=== PATIENT | male | born 1995 | race Caucasian/White ===

== ENCOUNTER 2024-06-09 19:26 | Emergency (ER) | payer OTHER ==
[~2024-06-09] VITALS: Ht 182.9 cm; Wt 104.3 kg
[2024-06-09 19:45] VITALS: TEMP 98.5
[2024-06-09] MEDS ORDERED: KETOROLAC TROMETHAMINE INJ 30 MG/ML VIAL ONE (20:01)
[2024-06-09] MEDS: KETOROLAC TROMETHAMINE INJ 30 MG/ML VIAL IM ONE (20:10)
[2024-06-09] MEDS ORDERED: IBUP-1490 PO (20:40)
[2024-06-09 20:53] VITALS: BP 138/89; O2SAT 99
== END 2024-06-09 20:52 | disposition home or self-care (01) ==
LOC: ER 19:30
DX: M94.0 Chondrocostal junction syndrome [Tietze] (principal); J45.909 Unspecified asthma, uncomplicated
CPT/HCPCS: 99283; 71045; 96372; 93005; J1885